=== PATIENT | male | born 1955 | race Two or more races ===

== ENCOUNTER → 2016-05-10 | Outpatient (CLI) | payer BC ==
--- NOTE | 2016-05-10 12:15 | REP ---
Prostate sonography: History: Elevated PSA. Nodule. Sonographic findings: Trans rectal prostate sonography demonstrates unremarkable seminal vesicles. Prostate gland is heterogeneously enlarged with calcifications and cystic changes noted. There is a right-sided nodule measuring 1.3 cm in greatest diameter. Glandular dimensions are measured at 4.4 x 2.8 x 4.2 cm with a calculated glandular volume of 27.2 ml. Transrectal sonographic guidance provided to Dr. Stratton who performed trans rectal ultrasound guided needle biopsy procedure . Signed by Clovis Arce MD 05/10/2016 12:07 P
== END | disposition home or self-care (01) ==
LOC: M SMT PRO 09:50
PROVIDERS: ATTEND Urology
DX: C61 Malignant neoplasm of prostate (principal); N41.8 Other inflammatory diseases of prostate
CPT/HCPCS: 76872; 76942; G0416

== ENCOUNTER → 2016-05-27 | Outpatient (CLI) | payer BC ==
[~2016-05-27] MED LIST: ISOVUE-370 76% 100ML VIAL (Q9967) As Ordered ONE
--- NOTE | 2016-05-27 10:37 | REP ---
Clinical: Prostate cancer. Technique: Axial contrast enhanced images from the lung bases to the pubic symphysis using 100 ml Isovue 370 intravenous contrast material with precontrast and delayed images of the abdomen as well as coronal and sagittal re-formations. Findings: Lung bases demonstrate 4 mm noncalcified nodule in the left lower lobe (image 5). Visualized heart and pericardium normal. Liver suggests fatty infiltration with 1 cm cyst in the lateral segment left lobe (image 22). Spleen, pancreas, gallbladder, bilateral adrenal glands and kidneys are normal. The enteric system is without obstruction or acute inflammatory process and a normal terminal ileum and appendix are identified in the right lower quadrant. A few scattered sigmoid diverticula noted without acute diverticulitis. Pelvis demonstrates normal bladder and grossly unremarkable prostate/seminal vesicles. No periprostatic infiltration or pelvic sidewall adenopathy is appreciated. No pelvic fluid. The patient is status post bilateral inguinal hernia repair. No ascites. No free air. No intraperitoneal or retroperitoneal adenopathy. Abdominal aorta and vasculature is essentially normal. Incidental note is made of retroaortic left renal vein. Musculoskeletal structures demonstrate age-related changes without focal osseous abnormality. Impression: 1. 4 mm noncalcified nodule in the left lower lung field is nonspecific and warrants followup. 2. Hepatosteatosis and 1 cm hepatic cyst. 3. Few scattered sigmoid diverticula without acute diverticulitis. 4. Incidental retroaortic left renal vein. 5. No acute intra-abdominal or pelvic pathology appreciated. Signed by Lalo Maxwell MD 05/27/2016 10:28 A
--- NOTE | 2016-05-27 16:18 | REP ---
Radionuclide bone scan: Whole body imaging is performed. Additionally lateral views of the calvarium, ankles and feet are performed and oblique views of the ribs and pelvis are performed. There is no calvarial uptake. There is a degenerative pattern of uptake in the shoulders. No unusual uptake is seen in the thoracic spine, lumbar spine or ribs. There is no unusual uptake in the pelvis, hips or lower extremities. Impression: There is a degenerative pattern of uptake in the shoulders. Otherwise, negative radionuclide bone scan. The study is performed with 21.6 mCi of technetium 99m labeled MDP. Signed by Hi Daugherty MD 05/27/2016 04:09 P
== END ==
LOC: M RAD 09:53
PROVIDERS: ATTEND Urology
DX: C61 Malignant neoplasm of prostate (principal); K57.30 Diverticulosis of large intestine without perforation or abscess without bleeding; R91.1 Solitary pulmonary nodule; K76.89 Other specified diseases of liver
CPT/HCPCS: 74178; Q9967

== ENCOUNTER → 2016-06-14 | Outpatient (CLI) | payer BC ==
--- NOTE | 2016-06-15 07:43 | RADONC ---
RADIATION ONCOLOGY CONSULTATION NOTE: DATE: 06/14/2016 CHART NO: [id number] DIAGNOSIS: Prostate cancer. STAGE: Stage is II B, [id number] ECOG PERFORMANCE STATUS: 0 Mr. Muñoz is a very pleasant 60-year-old white male with the diagnosis of a poorly differentiated [place] score 8 (4 - 4) adenocarcinoma of the prostate with a PSA level of 22.5 who is presenting to us today for consideration of definitive external beam radiation therapy with IMRT/IGRT. HISTORY OF PRESENT ILLNESS: The patient was in his usual state of health but found to have a rising PSA which reached a level of 22.5. On 05/10/2016, the patient underwent prostatic needle biopsy and pathology revealed a New score 8 (4 - 4) adenocarcinoma of prostate. The tumor was bilateral and there was perineural invasion noted on three samples. The patient has done well since biopsy and is now presenting for discussion of external beam radiation therapy with IMRT/IGRT as a therapeutic option in this high risk prostatic adenocarcinoma case. PAST MEDICAL HISTORY: The patient's past medical history is positive for tuberculosis. ALLERGIES: The patient has no known drug allergies. SOCIAL HISTORY: The patient does not smoke cigarettes nor abuse alcohol. FAMILY HISTORY: The patient's family history is positive for mother with breast cancer. REVIEW OF SYSTEMS: The patient's review of systems is noncontributory. Denies nausea, vomiting, fevers, chills, night sweats, diplopia, headaches, anxiety or depression, anorexia, weight loss, visual disturbances, chest pain, urinary or bowel difficulties, bone pain, or neurological problems. PHYSICAL EXAMINATION: The patient is a well-developed, well-nourished male in no acute distress. HEENT exam is normocephalic, atraumatic. Extraocular movements are intact. There is no palpable cervical, supraclavicular, infraclavicular, axillary, or inguinal lymphadenopathy present. Lungs are clear to auscultation and percussion. Heart has a regular rate and rhythm. Abdomen is benign with no hepatosplenomegaly, masses, or tenderness. Rectal examination reveals a normal anal sphincter tone. His prostate is somewhat enlarged and there is clear right-sided nodularity present. Skeletal examination reveals no tenderness to pressure or percussion of the bony skeleton. Extremities reveal no clubbing, cyanosis, or edema. Neurologic exam is grossly intact, as is the remainder of the physical examination. MEDICAL NECESSITY: IMRT/IGRT is clinically indicated for the highly conformal dose planning required. The target volume is in close proximity to critical structures, such as the rectum, bladder, small bowel, and femoral heads. The volume of interest must be covered with narrow margins to adequately protect immediately adjacent structures. The plan requires interpretation of complex testing such as CT localization. As noted above, special planning (IMRT) and localizing (IGRT) is required and essential to maximally protect sensitive normal tissue structures which cannot be accomplished using conventional 3-dimensional planning. IMAGING STUDIES: I have personally reviewed the patient's CT scan of the abdomen and pelvis done 05/27/2016. There is a 4 mm noncalcified nodule in the left lower lobe which is nonspecific. I have recommended repeat CT in three months' time. He reports that Dr. Wright will be following him for this. In addition, I reviewed the patient's bone scan done 05/27/2016 that shows no definitive evidence of metastatic disease. ASSESSMENT: Clearly Mr. Muñoz is a candidate for external beam radiation therapy and I have so informed him. I have discussed with the patient in detail the potential benefits as well as possible acute and chronic sequelae of external beam radiation therapy. We have discussed logistics of treatment planning, simulation and subsequent fractionated daily radiation treatments. The patient has already begun hormonal therapy and received a Lupron injection on June 01, 2016. He is scheduled for his fiducial markers and radiation simulation and initiation of treatment planning will follow. I did discuss with the patient alternatives to radiation such as surgery and the benefits and drawbacks of each of the treatment modalities. The patient has decided on external beam radiation therapy as his treatment modality of choice. Considering the overall pathologic evaluation of his specimen, I agree with his decision. cc: Donato Stratton MD *Boubacar Wright MD
== END ==
LOC: M ONCR 13:47
PROVIDERS: ATTEND Radiology Radiation Oncology
DX: C61 Malignant neoplasm of prostate (principal)

== ENCOUNTER → 2016-06-21 | Outpatient (CLI) | payer BC ==
--- NOTE | 2016-06-21 11:34 | REP ---
TRANSRECTAL PROSTATE ULTRASOUND GUIDANCE FOR FIDUCIARY MARKER PLACEMENT: Transrectal prostate ultrasound guidance provided to Dr. Stratton who performed placement of six fiduciary markers in the region of the prostate. Prostate length is 4.1 cm, width 4.4 cm and height 2.3 cm. Echotexture is heterogeneous. Signed by Hi Cabral MD 06/21/2016 05:25 P
== END ==
LOC: M SMT 08:46
PROVIDERS: ATTEND Urology
DX: C61 Malignant neoplasm of prostate (principal)
CPT/HCPCS: 76872; A4648

== ENCOUNTER 2016-07-04 10:20 | Outpatient (RCR) | payer BC ==
--- NOTE | 2016-07-04 10:45 | RADONC ---
RADIATION ONCOLOGY SIMULATION NOTE DATE: 07/04/2016 CHART NUMBER: [id number] Mr. Muñoz was taken to the CT scan for CT simulation of his prostate field. CT was accomplished without difficulty or discomfort. Radiation treatment planning is underway and radiation treatments will begin subsequently. An immobilization device was created and will be used throughout the course of treatment. It was accomplished without difficulty or discomfort. I was physically present throughout the course of CT simulation.
--- NOTE | 2016-07-18 08:59 | RADONC ---
RADIATION ONCOLOGY PROGRESS NOTE DATE: 07/18/2016 CHART NUMBER: [id number] Mr. Muñoz is presently at a dose of 900 cGy to his prostate and is tolerating treatments quite well at this point with no complaints related to his radiation therapy. He is having no urinary or bowel difficulties and no bone pain. The patient's review of systems is noncontributory. He denies nausea, vomiting, fevers, chills, night sweats, diplopia, headaches, anxiety or depression, anorexia, weight loss, visual disturbances, chest pain, urinary or bowel difficulties, bone pain, or neurological problems. PHYSICAL EXAMINATION: The patient's skin is in good condition with no evidence of radiation change present. There is no moist or dry desquamation. The remainder of the physical exam remains unchanged. Mr. Muñoz is tolerating treatments quite well and radiation will continue as scheduled.
--- NOTE | 2016-07-27 07:39 | RADONC ---
RADIATION ONCOLOGY PROGRESS NOTE DATE: 07/26/2016 CHART NUMBER: [id number] Mr. Muñoz is presently at a dose of 1800 cGy to his prostate and is tolerating treatments quite well at this point with no complaints related to his radiation therapy. He has no urinary or bowel difficulties and no bone pain. The patient's review of systems is noncontributory. He denies nausea, vomiting, fevers, chills, night sweats, diplopia, headaches, anxiety or depression, anorexia, weight loss, visual disturbances, chest pain, urinary or bowel difficulties, bone pain, or neurological problems. PHYSICAL EXAMINATION: The patient's skin is in good condition with no evidence of radiation change present. There is no moist or dry desquamation. The remainder of his physical exam remains unchanged. Mr. Muñoz is tolerating his treatments quite well and radiation will continue as scheduled.
== END 2016-07-27 ==
LOC: M ONCR 10:20
PROVIDERS: ATTEND Radiology Radiation Oncology
DX: C61 Malignant neoplasm of prostate (principal)

== ENCOUNTER → 2016-07-04 | Outpatient (CLI) | payer BC ==
[2016-07-04 11:19] LABS: MEAN CORPUSCULAR HEMOGLOBIN 32.1 pg (27.0-33.0); MEAN CORPUSCULAR HGB CONC 34.8 g/dl (32.0-36.5); MEAN CORPUSCULAR VOLUME 92.2 fl (80.0-96.0); RED CELL DISTRIBUTION WIDTH 12.1 % (11.5-14.5); WHITE BLOOD COUNT 6.8 K/mm3 (4.0-10.0)
== END ==
LOC: M RAD 10:14
PROVIDERS: ATTEND Radiology Radiation Oncology
DX: C61 Malignant neoplasm of prostate (principal)

== ENCOUNTER 2016-07-28 11:50 | Outpatient (RCR) | payer BC ==
--- NOTE | 2016-08-03 09:17 | RADONC ---
RADIATION ONCOLOGY PROGRESS NOTE DATE: 08/02/2016 CHART NUMBER: [id number] Mr. Muñoz is presently at a dose of 2700 cGy to his prostate and is tolerating treatments quite well at this point with no complaints related to his radiation therapy. He is having no urinary or bowel difficulties and no bone pain. REVIEW OF SYSTEMS: The patient's review of systems is noncontributory. Denies nausea, vomiting, fevers, chills, night sweats, diplopia, headaches, anxiety or depression, anorexia, weight loss, visual disturbances, chest pain, urinary or bowel difficulties, bone pain, or neurological problems. PHYSICAL EXAMINATION: The patient's skin is in good condition with no evidence of radiation change present. There is no moist or dry desquamation. The remainder of his physical exam remains unchanged. Mr. Muñoz is tolerating treatments quite well and radiation will continue as scheduled.
--- NOTE | 2016-08-09 08:53 | RADONC ---
RADIATION ONCOLOGY PROGRESS NOTE DATE: 08/08/2016 CHART NUMBER: [id number] Mr. Muñoz is presently at a dose of 3420 cGy to his prostate and is tolerating treatments quite well with no complaints related to his radiation therapy. He is having no urinary or bowel difficulties and no bone pain. The patient's review of systems is noncontributory. He denies nausea, vomiting, fevers, chills, night sweats, diplopia, headaches, anxiety or depression, anorexia, weight loss, visual disturbances, chest pain, urinary or bowel difficulties, bone pain, or neurological problems. PHYSICAL EXAMINATION: The patient's skin is in good condition with no evidence of radiation change present. There is no moist or dry desquamation. The remainder of his physical exam remains unchanged. Mr. Muñoz is tolerating treatments quite well and radiation will continue as scheduled.
--- NOTE | 2016-08-16 07:52 | RADONC ---
RADIATION ONCOLOGY PROGRESS NOTE: DATE: 08/15/2016 CHART NUMBER: [id number]. PROGRESS NOTE: Mr. Muñoz is presently at the dose of 4320 cGy to his prostate and is tolerating treatments quite well with no complaints related to his radiation therapy. He has no urinary or bowel difficulties and no bone pain. REVIEW OF SYSTEMS: The patient's review of systems is noncontributory. Denies nausea, vomiting, fevers, chills, night sweats, diplopia, headaches, anxiety or depression, anorexia, weight loss, visual disturbances, chest pain, urinary or bowel difficulties, bone pain, or neurological problems. PHYSICAL EXAMINATION: The patient's skin is in good condition. There is no moist or dry desquamation. The remainder of his physical exam remains unchanged. Mr. Muñoz is tolerating treatments quite well and radiation will continue as scheduled.
--- NOTE | 2016-08-23 06:58 | RADONC ---
RADIATION ONCOLOGY PROGRESS NOTE DATE: 08/22/2016 CHART NUMBER: [id number] Mr. Muñoz is presently at a dose of 5040 centigrade to his prostate and is tolerating treatments quite well at this point with no complaints related to his radiation therapy. He is having no urinary or bowel difficulties and no bone pain. REVIEW OF SYSTEMS: The patient's review of systems is noncontributory. Denies nausea, vomiting, fevers, chills, night sweats, diplopia, headaches, anxiety or depression, anorexia, weight loss, visual disturbances, chest pain, urinary or bowel difficulties, bone pain, or neurological problems. PHYSICAL EXAMINATION: The patient's skin is in good condition with no evidence of radiation change present. There is no moist or dry desquamation. The remainder of his physical exam remains unchanged. Mr. Muñoz is tolerating treatments quite well and radiation will continue as scheduled.
== END 2016-08-26 ==
LOC: M ONCR 11:50
PROVIDERS: ATTEND Radiology Radiation Oncology
DX: C61 Malignant neoplasm of prostate (principal)

== ENCOUNTER 2016-08-31 10:08 | Outpatient (RCR) | payer BC ==
--- NOTE | 2016-09-02 10:54 | RADONC ---
RADIATION ONCOLOGY PROGRESS NOTE DATE: 08/31/2016 CHART NUMBER: [id number]. Mr. Muñoz is presently at a dose of 5940 centigrade to his prostate and is tolerating treatments quite well at this point with no significant complaints related to his radiation therapy. He is having no urinary or bowel difficulties. No bone pain. REVIEW OF SYSTEMS: The patient's review of systems is noncontributory. Denies nausea, vomiting, fevers, chills, night sweats, diplopia, headaches, anxiety or depression, anorexia, weight loss, visual disturbances, chest pain, urinary or bowel difficulties, bone pain, or neurological problems. PHYSICAL EXAMINATION: The patient's skin is in good condition with no evidence of moist or dry desquamation. The remainder of his physical exam remains unchanged. Mr. Muñoz is tolerating treatments quite well and radiation will continue as scheduled.
--- NOTE | 2016-09-06 09:01 | RADONC ---
RADIATION ONCOLOGY PROGRESS NOTE DATE: 09/05/2016 CHART NUMBER: [id number] Mr. Muñoz is presently at a dose of 6480 cGy to his prostate and is tolerating treatments quite well at this point with no complaints related to his radiation therapy. He is having no urinary or bowel difficulties and no bone pain. REVIEW OF SYSTEMS: The patient's review of systems is noncontributory. He denies nausea, vomiting, fevers, chills, night sweats, diplopia, headaches, anxiety or depression, anorexia, weight loss, visual disturbances, chest pain, urinary or bowel difficulties, bone pain or neurological problems. PHYSICAL EXAMINATION: The patient's skin is in good condition with no evidence of radiation change present. There is no moist or dry desquamation. The remainder of his physical exam remains unchanged. Mr. Muñoz is tolerating treatments quite well and radiation will continue as scheduled.
--- NOTE | 2016-09-12 15:16 | RADONC ---
RADIATION ONCOLOGY PROGRESS NOTE DATE: 09/12/2016 CHART NUMBER: [id number] Mr. Muñoz is presently at a dose of 7200 centigrade to his prostate and is tolerating treatments quite well at this point with no complaints related to his radiation therapy. He is having no urinary or bowel difficulties and no bone pain. The patient's review of systems is noncontributory. He denies nausea, vomiting, fevers, chills, night sweats, diplopia, headaches, anxiety or depression, anorexia, weight loss, visual disturbances, chest pain, urinary or bowel difficulties, bone pain, or neurological problems. PHYSICAL EXAMINATION: The patient's skin is in good condition with no evidence of moist or dry desquamation. The remainder of his physical exam remains unchanged. Mr. Muñoz is tolerating treatments quite well and radiation will continue as scheduled.
--- NOTE | 2016-09-19 07:18 | RADONC ---
RADIATION ONCOLOGY TREATMENT SUMMARY DATE: 09/16/2016 CHART NUMBER: [id number] DIAGNOSIS: Prostate cancer. STAGE: IIB, [id number] ECOG PERFORMANCE STATUS: 0 TREATMENT SUMMARY: Mr. Muñoz is a very pleasant 61-year-old white male with the diagnosis of a poorly differentiated [place] score 8 (4-4) adenocarcinoma of prostate with a PSA level of 22.5 who presented to us for consideration of definitive external beam radiation therapy with IMRT/IGRT. We treated the patient to his prostate for a total dose of 7920 cGy delivered in 44 fractions of 180 cGy each over 60 elapsed days from 07/12/2016 through 09/16/2016. The patient's prostate was treated on a linear accelerator utilizing a 6 MV photon beam via IMRT/IGRT. We initially treated the prostate, seminal vesicles and first echelon of lymph nodes for a dose of 4500 cGy and subsequently coned down to the prostate and seminal vesicles to deliver an additional 900 cGy, once again bringing the seminal vesicles to a total dose of 5400 cGy. Finally, an additional 2520 cGy was delivered to the prostate bringing it to a total of 7920 cGy. Mr. Muñoz tolerated his treatments quite well and was able to complete therapy as prescribed without interruption. The patient is scheduled see me again in 1 month for further followup and will continue to be followed by his other physicians as well. cc: MD Bouabcar Jeffery MD
== END 2016-09-26 ==
LOC: M ONCR 10:08
PROVIDERS: ATTEND Radiology Radiation Oncology
DX: C61 Malignant neoplasm of prostate (principal)

== ENCOUNTER → 2016-10-26 | Outpatient (CLI) | payer BC ==
--- NOTE | 2016-10-28 09:16 | RADONC ---
RADIATION ONCOLOGY FOLLOWUP NOTE DATE: 10/26/2016 CHART NUMBER: [id number] DIAGNOSIS: Prostate cancer. STAGE: IIB, [id number]. ECOG PERFORMANCE STATUS: 0 FOLLOWUP NOTE: Mr. Muñoz is a very pleasant 61-year-old white male with the diagnosis of a stage IIB, [id number], poorly differentiated [place] score 8 (4-4) adenocarcinoma of the prostate with an initial PSA level of 22.5, who is presenting to us today for routine followup visit 1 month post completion of external beam radiation therapy. The patient presents today reporting that he is doing quite well with no complaints at this time related to his radiation therapy or disease. He has no urinary or bowel difficulties and no bone pain. The patient's review of systems is noncontributory. He denies nausea, vomiting, fevers, chills, night sweats, diplopia, headaches, anxiety or depression, anorexia, weight loss, visual disturbances, chest pain, urinary or bowel difficulties, bone pain, or neurological problems. PHYSICAL EXAMINATION: The patient is a well-developed, well-nourished male in no acute distress. HEENT exam is normocephalic, atraumatic. Extraocular movements are intact. There is no palpable cervical, supraclavicular, infraclavicular, axillary, or inguinal lymphadenopathy present. Lungs are clear to auscultation and percussion. Heart has a regular rate and rhythm. Abdomen is benign with no hepatosplenomegaly, masses, or tenderness. Rectal examination reveals a normal anal sphincter tone. His prostate is smooth with no evidence of nodularity. Skeletal examination reveals no tenderness to pressure or percussion of the bony skeleton. Extremities reveal no clubbing, cyanosis, or edema. Neurologic exam is grossly intact, as is the remainder of the physical examination. ASSESSMENT: The patient is clinically ABBY at this time and will be seen by us again in 6 months for further followup. He will also continue to be followed by his other physicians as well. cc: MD Boubacar Jeffery MD
== END ==
LOC: M ONCR 15:06
PROVIDERS: ATTEND Radiology Radiation Oncology
DX: C61 Malignant neoplasm of prostate (principal)

== ENCOUNTER → 2017-05-02 | Outpatient (CLI) | payer BC ==
[~2017-05-02] MED LIST changes: +ISOVUE-370 76% 100ML VIAL (Q9967) As Ordered; -ISOVUE-370 76% 100ML VIAL (Q9967) As Ordered ONE
== END ==
LOC: M RAD 07:30
DX: R91.1 Solitary pulmonary nodule (principal)

== ENCOUNTER → 2017-06-09 | Outpatient (CLI) | payer BC | LOC: M ONCR 14:55 | DX: C61 Malignant neoplasm of prostate (principal) ==

== ENCOUNTER → 2017-12-13 | Outpatient (CLI) | payer BC ==
--- NOTE | 2017-12-14 15:17 | RADONC ---
RADIATION ONCOLOGY FOLLOWUP NOTE DATE: 12/13/2017 CHART NUMBER: [id number]. DIAGNOSIS: Prostate cancer. STAGE: Stage II B, [id number]. ECOG PERFORMANCE STATUS: 0. FOLLOWUP NOTE: Mr. Muñoz is a very pleasant 62-year-old white male with the diagnosis of a stage II B, [id number] poorly differentiated New score 8 (4+4) adenocarcinoma of prostate with initial PSA level of 22.5 who is presenting to us today for routine followup visit 1 year and 3 months post completion of external beam radiation therapy. The patient presents today reporting that he is doing quite well with no complaints at this time related to his radiation therapy or disease. He has no urinary or bowel difficulties. No bone pain. The patient's review of systems is noncontributory. Denies nausea, vomiting, fevers, chills, night sweats, diplopia, headaches, anxiety or depression, anorexia, weight loss, visual disturbances, chest pain, urinary or bowel difficulties, bone pain, or neurological problems. PHYSICAL EXAMINATION: The patient is a well-developed, well-nourished male in no acute distress. HEENT exam is normocephalic, atraumatic. Extraocular movements are intact. There is no palpable cervical, supraclavicular, infraclavicular, axillary, or inguinal lymphadenopathy present. Lungs are clear to auscultation and percussion. Heart has a regular rate and rhythm. Abdomen is benign with no hepatosplenomegaly, masses, or tenderness. Rectal examination reveals a normal anal sphincter tone. His prostate is smooth with no evidence of nodularity. Skeletal examination reveals no tenderness to pressure or percussion of the bony skeleton. Extremities reveal no clubbing, cyanosis, or edema. Neurologic exam is grossly intact, as is the remainder of the physical examination. ASSESSMENT The patient reports that he is being seen and managed every [address] Stratton. He is receiving hormonal therapy at Dr. Stratton's office. In light of this, I have discharged him from our followup except on a p.r.n. basis. cc: MD Boubacar Jeffery MD
== END ==
LOC: M ONCR 14:40
PROVIDERS: ATTEND Radiology Radiation Oncology
DX: C61 Malignant neoplasm of prostate (principal)